=== PATIENT | male | born 1925 | race Caucasian/White ===

== ENCOUNTER 2016-04-12 19:22 | Emergency (ER) | payer MEDICARE, OTHER ==
[~2016-04-12 19:22] MED LIST: CARD120 PO; DIABETA5 PO; METFORMIN PO; PRIN10 PO; ZOCOR40 PO
[2016-04-13 01:07] LABS: BASOPHILS 0.1 %; BASOPHILS ABSOLUTE 0.01 10/3/uL (0.0-0.16); EOSINOPHILS 1.2 %; ER CBC TAT 0 Hrs 20 Mins; HEMATOCRIT 41.8 % (40.0-51.0); HEMOGLOBIN 14.5 g/dL (13.6-17.8); IMMATURE GRANULOCYTES 0.2 %; IMMATURE GRANULOCYTES ABSOLUTE 0.02 10/3/uL (0.0-0.11); MEAN CORPUS HGB CONC 34.7 g/dL (32.0-36.0); MEAN CORPUSCULAR HEMOGLOB 31.1 pg (26.0-34.0); MEAN CORPUSCULAR VOLUME 89.7 fL (80-100); MEAN PLATELET VOLUME 9.7 fL (9.2-13.0); MONOCYTES 7.1 %; MONOCYTES ABSOLUTE 0.57 10/3/uL (0.21-1.20); NEUTROPHILS 65.4 %; NEUTROPHILS ABSOLUTE 5.28 10/3/uL (2.02-8.40); PLATELET COUNT 190 10/3/uL (150-400); RBC DISTRIBUTION WIDTH 12.6 % (12.0-16.0); RED CELL COUNT 4.66 10/6/uL (4.7-6.1); WHITE BLOOD CELLS 8.1 10/3/uL (4.5-10.5)
[2016-04-13 01:08] LABS: MANUAL DIFF NO %
[2016-04-13 01:42] LABS: CALCIUM, SERUM 9.1 MG/DL (8.5-10.4); CHLORIDE, SERUM 104 MMOL/L (96-112); CO2 (CARBON DIOXIDE) 29 MMOL/L (24-34); CREATININE 1.29 MG/DL (0.70-1.30); GFR AFRICAN AMERICAN 57 ML/MIN (>=60); GFR NON AFRICAN AMERICAN 49 ML/MIN (>=60); POTASSIUM, SERUM 4.1 MMOL/L (3.5-5.3); SGOT(AST) 11 U/L (5-40); SGPT(ALT) 21 U/L (5-65); SODIUM, SERUM 141 MMOL/L (135-148); TOTAL BILIRUBIN 0.5 MG/DL (0-1.2)
[2016-04-13 01:42] LABS: ALBUMIN 3.9 G/DL (3.5-5.0); DIRECT BILIRUBIN 0.1 MG/DL (0.0-0.4); INDIRECT BILIRUBIN(NOT ORDER) 0.3 MG/DL (0.1-0.9); TOTAL BILIRUBIN 0.4 MG/DL (0-1.2); TOTAL PROTEIN 7.8 G/DL (6.0-8.5)
[2016-04-13 01:43] LABS: ALKALINE PHOSPHATASE 87 U/L (45-117); BUN (BLOOD UREA NITROGEN) 29 MG/DL (6-23); GLUCOSE, SERUM 315 MG/DL (60-99)
[2016-04-13 01:58] LABS: ASCORBIC ACID (UR NOT ORDER) NEG (NEG); BILIRUBIN, URINE NEGATIVE (NEG); ER URINALYSIS TAT 0 Hrs 00 Mins; KETONE, URINE NEGATIVE (NEG); LEUKOCYTE ESTERASE(NOT OR NEG (NEG); NITRITE (URINE) NEG (NEG); WBC (NOT ORDERED) (RFLEX) < 1 (0-5)
[2016-04-14] MEDS ORDERED: CARD120 PO (11:18)
[2016-04-14] MEDS ORDERED: LANTUS SC (11:18)
[2016-04-14] MEDS ORDERED: ZOCOR40 PO (11:18)
[2016-04-14] MEDS ORDERED: PRIN10 PO (11:18)
[2016-04-14] MEDS ORDERED: DIABETA5 PO (11:18)
[2016-05-17] MEDS ORDERED: LANTUSCART SC (13:41)
[2016-05-17] MEDS ORDERED: ARICEPT5 PO (13:42)
[2016-05-17] MEDS ORDERED: NOVOPEN SC (13:42)
[2016-05-17] MEDS ORDERED: PLAVIX PO (13:43)
[2016-05-17] MEDS ORDERED: LIPITOR80 MG PO (13:43)
[2016-05-17] MEDS ORDERED: ASABAYER PO (13:45)
[2016-05-17] MEDS ORDERED: PROTONIX PO (13:45)
[2016-05-23] MEDS ORDERED: LANTUS SC ×2 (19:52→19:53)
[2016-05-23] MEDS ORDERED: NOVOLOG SC (19:53)
[2016-05-23] MEDS ORDERED: ASA5GR PO (19:54)
[2016-05-23] MEDS ORDERED: CARDCD120 PO (19:54)
[2016-05-23] MEDS ORDERED: PLAVIX PO (19:54)
[2016-05-23] MEDS ORDERED: ARICEPT5 PO (19:54)
[2016-05-23] MEDS ORDERED: DIABETA5 PO (19:54)
[2016-05-23] MEDS ORDERED: PRIN10 PO (19:55)
[2016-05-23] MEDS ORDERED: LIPITOR80 MG PO (19:55)
[2016-05-23] MEDS ORDERED: ADVIL PO (19:56)
[2016-05-23] MEDS ORDERED: MIRALAX POWDER1 PKT PO (19:56)
[2016-05-23] MEDS ORDERED: DESITIN (19:57)
== END 2016-04-13 03:09 | disposition home or self-care (01) ==
LOC: ER 19:22
PROVIDERS: Nurse Practitioner; Nurse Practitioner Acute Care
PROC: 0T9B70Z Drainage of Bladder with Drainage Device, Via Natural or Artificial Opening (ICD-10-PCS; principal; 2016-04-12)
DX: N32.89 Other specified disorders of bladder (principal); R33.9 Retention of urine, unspecified; E11.65 Type 2 diabetes mellitus with hyperglycemia; Z85.46 Personal history of malignant neoplasm of prostate; Z79.899 Other long term (current) drug therapy
CPT/HCPCS: 74176; 80053; 80076; 81001; 82962; 83690; 85025; 99285

== ENCOUNTER 2016-04-14 11:17 | Inpatient (IN) | payer MEDICARE, OTHER ==
--- NOTE | ~2016-04-14 | HP ---
History And Physical [address] [address] NAME: DYAN TORRES : [birth year] STATUS : ADM IN [facility]#: [id number] AGE: 89 ADM/REG DATE : 04/14/16 MR#: [id number] REPORT SERV DATE: 04/14/16 DICTATED BY: KRYSTAL HERNANDEZ DATE: 04/14/16 REPORT STATUS : Draft TRANSCRIBED BY: ESTELLE DATE: 04/14/16 DATE OF ADMISSION: 04/14/2016 TIME: 1243 hours. Seen in ER room 21. HISTORY OF PRESENT ILLNESS: The patient is an 89-year-old white male, who this morning was found down at home about an hour after his overnight helper left. He was found by his daughter, found to be on the floor, right-sided weakness, dysarthria, and altered mental status. He was taken to the ER and evaluated by CT scan, which did not show an acute issue. He was given tPA for stroke, and had marked improvement. According to the patient's family, he has had no prior history of strokes, no prior history of significant cardiac disease. Has had history of hypertension and also has a past medical history of diabetes. He also had prostate cancer treated with radiation seed therapy. ALLERGIES: NO KNOWN ALLERGIES. HOME MEDICATIONS: Include Cardizem 120 mg p.o. daily, DiaBeta 5 mg p.o. twice a day, Lantus 15 units subcu twice a day, lisinopril 10 mg p.o. daily, and simvastatin 40 mg p.o. daily. REVIEW OF SYSTEMS: GI: Negative. : As noted. Also, a recent note, bladder tumor, diagnosed two nights ago. Has a Hawthorne in place. PHYSICAL EXAMINATION: VITAL SIGNS: Showed a blood pressure of 130/92, pulse of 90 and regular, temperature 98.3. Saturation 97%. GENERAL: The patient is an elderly appearing male, slightly tanned. HEENT: Head is normocephalic. Sclerae and conjunctivae are clear. Extraocular movements appear to be intact. Visual chaney grossly intact. NECK: Supple. Good upstroke. No bruits. Oropharynx has some bleeding around the gumline. CHEST: Clear to auscultation and percussion. No wheezing or rhonchi. CARDIAC: S1 and S2. No murmurs or gallops. ABDOMEN: Scaphoid, nontender. No masses or organomegaly. EXTREMITIES: No clubbing, cyanosis, or edema. Pulses palpable. NEUROLOGIC: Moves all extremities. Seems to be equal in strength currently. This is after tPA. Cranial nerves 2 through 12 appear to be intact. Deep tendon reflexes appear to be within normal limits. LABORATORY DATA: Shows the following; sodium 141, potassium 3.8, chloride 104, CO2 is 31, BUN 25, creatinine 1.14, glucose 190, calcium 9.0, total protein 7.4, albumin 3.5, total bilirubin 0.9. Alkaline phosphatase 87, ALT 20, AST 12, troponin 0.02. CBC shows an H and H of 14.0 and 39.5, white count 52778, platelet count 167,000. PTT 24.3, INR 1.2. Brain stroke protocol was done, which showed marked cerebral atrophy with severe periventricular History And Physical [address] [address] NAME: DYAN TORRES : [birth year] STATUS : ADM IN [facility]#: [id number] AGE: 89 ADM/REG DATE : 04/14/16 MR#: [id number] REPORT SERV DATE: 04/14/16 DICTATED BY: KRYSTAL HERNANDEZ DATE: 04/14/16 REPORT STATUS : Draft TRANSCRIBED BY: ESTELLE DATE: 04/14/16 leukoencephalopathy and evidence of prior infarctions. CTA of neck and brain showed fairly normal carotid vessels calcified, but patent carotid siphons. No intracranial thrombus identified. Chest x-ray, chronic interstitial fibrosis. No lung masses or lung infiltrates. EKG shows sinus rhythm, first degree AV block, left bundle-branch block. Abnormal ECG. IMPRESSION: 1. Recent cerebrovascular accident, now responding to tPA. 2. History of hypertension. 3. History of diabetes mellitus, insulin dependent. 4. What appears to be mild interstitial lung disease. 5. Bladder mass seen recently. PLAN: We will follow his neurologic status and we will get Dr. Carrasco to see the patient regarding his bladder tumor. On his x-ray, it looks like he has had several rib fractures. RP/MODL Krystal Hernandez M.D. / [id number] CC: Kendell Blanco
--- NOTE | ~2016-04-14 | EEG ---
Electroencephalogram [facility] [address] [place]. [address] NAME: DYAN TORRES : [birth year] STATUS : ADM IN PAT#: [id number] AGE: 89 ADM/REG DATE : 04/14/16 MR#: [id number] REPORT SERV DATE: 04/17/16 DICTATED BY: DATE: REPORT STATUS : Draft TRANSCRIBED BY: MODL DATE: 04/17/16 NEUROLOGY EEG REPORT CLINICAL INDICATION: Possible seizure. DISCUSSION: This EEG was performed using 10/20 electrode placement system. During the EEG study, symmetric background activity was noted with predominant occipital rhythm of roughly 8 Hz. Photic stimulation was performed with photic driving response more prominently seen at the lower frequency. Hyperventilation was not performed secondary to patient's the age as well as concurrent medical conditions. The patient achieved drowsy state during the EEG study. No focal abnormalities, seizure activity, or seizure discharge was otherwise noted. INTERPRETATION: This EEG study obtained during awake and drowsy state may be considered within normal limits. No focal abnormalities, seizure activity, or seizure discharge was noted. Normal EEG does not preclude diagnosis of seizure. Clinical correlation is otherwise recommended. [facility]/MODL Paulie Haider MD / [id number] CC: Pablo Hernandez M.D.
--- NOTE | ~2016-04-14 | CN ---
Consultation Report [facility] [address] [place]. [address] NAME: DYAN TORRES : [birth year] STATUS : ADM IN PAT#: [id number] AGE: 89 ADM/REG DATE : 04/14/16 MR#: [id number] REPORT SERV DATE: 04/17/16 DICTATED BY: RENEE ZULETA DATE: 04/14/16 REPORT STATUS : Draft TRANSCRIBED BY: MODL DATE: 04/14/16 UROLOGY CONSULT DATE OF CONSULTATION: I am seeing this patient for Dr. Carrasco in his absence. CHIEF COMPLAINT: Unable to obtain due to the patient is asleep. HISTORY: This is an 89-year-old gentleman, known to Dr. Carrasco for history of prostate cancer, treated with radioactive seed implants over 13 years ago. He has a solitary right kidney. He was recently seen in the office in February. He did have a cytology sent at that time for microscopic hematuria. This returned as normal. He had a complete workup for microscopic hematuria in 2010. This included a cystoscopy and a right retrograde pyelogram in the operating room. It also included bladder biopsies. All of this was negative for cancer or stones. Dr. Carrasco was in the process of scheduling an office cystoscopy since it had been greater than 5 years since his last microscopic hematuria workup. Unfortunately, the patient was admitted for a stroke. He has responded well to tPA given at noon today. His only remaining sequelae is a slightly decreased right promotions specialist strength. He presented to the emergency room on the complaining of abdominal pain. He underwent a CT scan stone protocol, which showed greatly distended bladder and had a Hawthorne catheter placed. However, it also showed right hydroureteronephrosis which was very significant with a tortuous ureter and a severely distended right renal pelvis. This torturous ureter was down to the distal ureter where he has a mass extrinsically compressing the ureter. On series 5, image 32, you can see the mass cupping the distal ureter. This is where you can see that it is extrinsic in origin. The patient was sent home and told to follow up with Dr. Carrasco. In regard to his prostate cancer, Dr. Carrasco and Mr. Torres had agreed several years ago to forego any further PSAs due to his age, but a PSA was checked in 2014 that was elevated compared to previous, but it was less than 4. At this point, he has some clear yellow urine in his catheter bag. His creatinine is 1.14 which is his baseline compared to September of 2015. He does not appear to be in any pain. PAST MEDICAL HISTORY: Prostate cancer, recent stroke, elevated cholesterol, hypertension, and diabetes. PAST SURGICAL HISTORY: Placement of radioactive seeds. ALLERGIES: NO KNOWN DRUG ALLERGIES. MEDICATIONS: On admission; Cardizem, DiaBeta, Lantus Insulin, Prinivil, and Zocor. SOCIAL HISTORY: He is single, lives with his family and retired. Denies any current alcohol or tobacco use. REVIEW OF SYSTEMS: Consultation Report [address] [place]. [address] NAME: DYAN TORRES : [birth year] STATUS : ADM IN [facility]#: [id number] AGE: 89 ADM/REG DATE : 04/14/16 MR#: [id number] REPORT SERV DATE: 04/17/16 DICTATED BY: RENEE ZULETA DATE: 04/14/16 REPORT STATUS : Draft TRANSCRIBED BY: ESTELLE DATE: 04/14/16 He had right-sided weakness upon presentation, also with dysarthria and speech difficulties upon presentation. PHYSICAL EXAMINATION: VITAL SIGNS: He is afebrile. His vital signs are pulse of 74. He has a normal blood pressure. In's and out's are not yet recorded as he just made it to the unit. GENERAL: He is in no acute distress. NEUROLOGIC: He is drowsy. HEENT: Eyes: His sclerae are anicteric. Face is bruised. EXTREMITIES: Show no edema. : Exam shows Hawthorne catheter in place, draining clear, yellow urine. LABORATORY STUDIES: White count of 12.1, hemoglobin 14, hematocrit 39.5, platelets 167. Sodium 141, potassium 3.8, chloride 104, CO2 of 31, BUN of 25, creatinine 1.14, glucose of 190. PT of 15.4, INR of 1.2, and PTT of 24.3. LFTs are within normal limits. CT scan as stated above. IMPRESSION: 1. 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 2. Urinary retention. Hawthorne catheter in place, draining well. 3. Status post cerebrovascular accident; tPA given at noon on 04/14/2016. Plavix is not yet given. PLAN: 1. I spoke with both Dr. Hernandez and Dr. Whittaker of Interventional Radiology. Stents do not reliably drain through extrinsic compression of the ureter. He has a solitary kidney. He needs a percutaneous nephrostomy tube. We had a very small window with which to work due to his tPA and his need for Plavix. Dr. Whittaker is willing to place a percutaneous nephrostomy tube tomorrow afternoon, [address] Hernandez believes it will be safe to hold off on the Plavix until Sunday morning. I have explained all of this to the family and discussed with them. They are in agreement with this plan. 2. I have ordered a PSA to be drawn with his a.m. laboratory studies. 3. If the PSA is further elevated from previous then, we will start hormonal therapy with leuprolide shot. Perhaps, this will help decrease the mass size enough to allow renal drainage. The other option is that it may decrease the mass size enough to allow potential drainage through a stent. This has all been explained in detail to the family, and they are willing to proceed with this plan. ENRICO/ESTELLE Renee Consultation Report [address] [place]. [address] NAME: DYAN TORRES CIARAN : [birth year] STATUS : ADM IN PAT#: [id number] AGE: 89 ADM/REG DATE : 04/14/16 MR#: [id number] REPORT SERV DATE: 04/17/16 DICTATED BY: RENEE ZULETA DATE: 04/14/16 REPORT STATUS : Draft TRANSCRIBED BY: ESTELLE DATE: 04/14/16 Kendell Zuleta / [id number] CC: Kendell Blanco
--- NOTE | ~2016-04-14 | CN ---
Consultation Report [facility] [address] [place]. [address] NAME: DYAN TORRES : [birth year] STATUS : ADM IN PAT#: [id number] AGE: 89 ADM/REG DATE : 04/14/16 MR#: [id number] REPORT SERV DATE: 04/14/16 DICTATED BY: DATE: REPORT STATUS : Draft TRANSCRIBED BY: MODL DATE: 04/14/16 NEUROLOGY CONSULTATION DATE OF CONSULTATION: 04/14/2016 REASON FOR CONSULT: Acute change in mental status, possible stroke. HISTORY OF PRESENT ILLNESS: This is an 89-year-old male, presented to [facility] on 04/14/2016 via EMS as the patient was found by family members to be unconscious on the side. The patient, upon EMS arrival, was awake, but disoriented, and was noted to have significant right-sided weakness. The patient's language has significantly improved after EMS and hospital arrival. Also, the patient was still noted to have significant right-sided weakness and significant dysarthria and disorientation. The patient's family denies similar events in the past. The patient does have urinary retention and was diagnosed with bladder mass in the emergency department roughly two days ago, with the patient being having Hawthorne catheterization until the patient can be evaluated by a urologist. Otherwise, the family denies any other recent illness, fever, chills, nausea, vomiting, chest pain, or shortness of breath. The patient does not have any previous history of seizure. The patient's family does report the patient has some cognitive difficulties, especially with the recent memories as well as day-to-day activities, although the patient does not appear to have difficulties with the long-term memory. This has been ongoing for the past several months and progressively worse. The patient at baseline does not take any blood thinner. The patient was supposed to be taking baby aspirin, but the patient ran out of medication and has not been getting new bottle. As a result, the patient currently is not on any aspirin therapy. Family members does reports a previous history of stroke, although the patient does not appear to be symptomatic. No other changes in medication were otherwise reported by family members. MEDICATIONS: At time of evaluation, the patient's home medications consists of glyburide as well as lisinopril with the patient also on simvastatin. ALLERGIES: THE PATIENT WAS NOTED TO HAVE NO KNOWN DRUG ALLERGIES. PAST MEDICAL HISTORY: Significant for hypertension, diabetes, previous history of stroke without residual deficits. The patient was asymptomatic. The patient was also noted to have progressive memory difficulties over the past several months and recent diagnosis of bladder cancer. The patient has not had a chance to be evaluated by Urology at this time. No previous history of seizure disorder was noted. FAMILY HISTORY: Significant for stroke, hypertension, lung cancer, as well as diabetes. SOCIAL HISTORY: No tobacco, alcohol, or recreational drug usage. REVIEW OF SYSTEMS: Consultation Report [place] [id number] [facility] [place]. [address] NAME: DYAN TORRES : [birth year] STATUS : ADM IN PAT#: [id number] AGE: 89 ADM/REG DATE : 04/14/16 MR#: [id number] REPORT SERV DATE: 04/14/16 DICTATED BY: DATE: REPORT STATUS : Draft TRANSCRIBED BY: MODL DATE: 04/14/16 Otherwise negative except for those mentioned in the HPI, per family members. Also, the patient was unable to provide detailed review of systems secondary to mental status. PHYSICAL EXAMINATION: VITAL SIGNS: At the time of the ER evaluation, the patient was noted to have T-max of 98.3, heart rate of 64 to 90, and respirations of 16. The patient was noted to have blood pressure of 130/92. GENERAL: The patient is well developed, well nourished, in no acute distress. CARDIOVASCULAR: Regular rate and rhythm. No carotid bruits were otherwise auscultated. PULMONARY: Clear to auscultation bilaterally. NEUROLOGICAL EXAMINATION: Generally, the patient is alert and disoriented regarding place, year, or month. The patient follows sporadic commands at the time of evaluation. Dysarthria was appreciated at the time of evaluation. Cranial nerves II through XII, pupils equal, round, and reactive to light. Extraocular eye movement was noted to be intact with intact blink to threat bilaterally. The patient was noted to have right facial droop. Midline tongue. Normal palatal movement. Decreased hearing with the patient noted to have an apparent intact sensation. The patient does demonstrate symmetrical strength in bilateral upper extremity, but weakness in the right lower extremity with the drift as well as intact strength in the left lower extremity. Deep tendon reflex was 2+ throughout. Upgoing toe on bilateral plantar reflexes. No clear ataxia was noted. Gait was not evaluated secondary to the patient's weakness and mental status. LABORATORY STUDIES: Demonstrates sodium 141, potassium is 3.8, chloride 104 bicarb of 31, BUN of 25, creatinine 1.14, glucose was 90, calcium of 9.0. White blood cell count of 12.1, hemoglobin of 14.0, hematocrit of 39.5, and platelet count of 167. CT scan of the brain demonstrated multiple previous CVAs and subcortical white matter diseases, but no acute process was seen. Generalized atrophy was also noted. IMPRESSION: 1. Altered mental status. 2. Dysarthria. 3. Right hemiparesis. The patient was last noted to be normal at 0830 hours with the patient on evaluation noted to have NIH Stroke Scale of 8. The tPA was given at 1130 hours. Concerned for possible stroke versus seizure, we will get MRI of the brain, stroke workup, as well as EEG evaluation. RECOMMENDATION: 1. ICU admission. 2. MRI of the brain without contrast. 3. Echocardiogram. 4. Fasting lipid panel and hemoglobin A1c. 5. EEG. 6. Aspirin and Plavix 24 hours after tPA. Consultation Report [address] [address] NAME: DYAN TORRES : [birth year] STATUS : ADM IN [facility]#: [id number] AGE: 89 ADM/REG DATE : 04/14/16 MR#: [id number] REPORT SERV DATE: 04/14/16 DICTATED BY: DATE: REPORT STATUS : Draft TRANSCRIBED BY: MODL DATE: 04/14/16 7. We will start the patient on atorvastatin 80 mg p.o. at bedtime. 8. We will discontinue the patient's home simvastatin. 9. PT/OT, Speech Therapy, consulting physician. [facility]/MODL Paulie Haider MD / [id number] CC: Kendell Blanco TERESA J
--- NOTE | ~2016-04-14 | IDS ---
Interim Discharge Summary [facility] [address] [place]. [address] NAME: DYAN TORRES : [birth year] STATUS : ADM IN [facility]#: [id number] AGE: 89 ADM/REG DATE : 04/14/16 MR#: [id number] REPORT SERV DATE: 04/17/16 DICTATED BY: VIDAL LIU DATE: 04/17/16 REPORT STATUS : Draft TRANSCRIBED BY: ESTELLE DATE: 04/17/16 ADMISSION DATE: 04/14/2016 DISCHARGE DATE: DIAGNOSES: 1. Acute right hemispheric cerebrovascular accident status post tPA. 2. Dysphagia. 3. Urinary tract infection associated with hydronephrosis, requiring placement right nephrostomy tube. 4. 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 5. Type 2 diabetes mellitus. 6. Hypertension. 7. Possible dementia. HOSPITAL COURSE: This is an 89-year-old patient, who was admitted to the Intensive Care Service on 04/14/2016 after he was found down at home with right-sided weakness, dysarthria, and altered mental status. The patient was taken to the ER. CT scan of the head was done that was negative. The patient was then considered a candidate for tPA for stroke, this was done and Neurology service was following the patient as well. The patient was then subsequently admitted and during his workup here, he had a CT scan of the abdomen and pelvis that showed that the patient had a prior left nephrectomy, marked hydronephrotic changes on the right secondary to tumor infiltration and/or obstruction of the distal right ureter. Dr. Zuleta of Urology Service was consulted and scheduled the patient for placement of right nephrostomy tube, which was done on Sunday since the patient had just received tPA and had to wait at least over 24 hours to have this placed. Urology continues to follow the patient. The patient did exhibit some dysphagia afterwards and was n.p.o. for at least a day or so but that seems to have been improved and the patient is not able to take p.o. he ill requires OT and PT. He also has a urinary tract infection and has 100,000 colonies of Citrobacter freundii, and has been started on cefepime today. With regard to his diabetes mellitus. He at first was just on a sliding insulin scale. When his diet progressed, he was started on DiaBeta and Levemir. Hypertension requires lisinopril. Possible interstitial lung disease was mentioned in the notes; however, there is no documented history of that and the patient sat is 97% on minimal O2. Neurology has been following the patient and thus far his EEG is to be done today on 04/17/2016. Echo was done and is pending. He also was thought to have some dementia and was started on Aricept by Neurology. He also was continued on Lipitor in the setting of stroke as well as aspirin and Plavix. MRI of the brain is negative. EEG is being done because there was a question of seizure when he first was admitted, however, no seizure activity has been witnessed and the patient is not on any medication for this. Going back to the patient's urology issues, the patient has a history of prostate cancer, Interim Discharge Summary [address] [address] NAME: DYAN TORRES : [birth year] STATUS : ADM IN [facility]#: [id number] AGE: 89 ADM/REG DATE : 04/14/16 MR#: [id number] REPORT SERV DATE: 04/17/16 DICTATED BY: VIDAL LIU DATE: 04/17/16 REPORT STATUS : Draft TRANSCRIBED BY: ESTELLE DATE: 04/17/16 treated with radioactive seed implants over 13 years ago. The patient had a complete workup for microscopic hematuria in 2010. For further details of Urology opinion, please see the detailed consult that was dictated by Dr. Zuleta. The patient also has a history of hypercholesterolemia and is continued on Lipitor. He will need OT/PT and speech therapy. Aspiration precautions should be followed. The patient is currently on a diabetic diet. He is in stable condition to be transferred to the floor and to be followed by the hospitalist service once the transfer occurs. /MODL Vidal Liu M.D. / [id number] CC: Kendell Blanco TERESA J.
--- NOTE | ~2016-04-14 | DS ---
Discharge Summary [address] [place]. [address] NAME: DYAN TORRES : [birth year] STATUS : DIS IN PAT#: [id number] AGE: 89 ADM/REG DATE : 04/14/16 MR#: [id number] REPORT SERV DATE: 04/22/16 DICTATED BY: YING NARVAEZ DATE: 04/21/16 REPORT STATUS : Draft TRANSCRIBED BY: ESTELLE DATE: 04/21/16 ADMISSION DATE: 04/14/2016 DISCHARGE DATE: 04/20/2016 Date of transfer from MICU to a regular floor is 04/17/2016. CONDITION ON DISCHARGE: Stable. DISPOSITION: Discharged to inpatient rehab facility. DIAGNOSES ON DISCHARGE: Includes: 1. Acute right hemispheric cerebrovascular accident with minimal residual weakness on the left side as the patient received tPA. 2. Dysphagia, which is very minimal and the patient is able to eat a soft mechanical diet with aspiration precautions pretty well. 3. Urinary tract infection associated with hydronephrosis requiring placement of a right nephrostomy tube. 4. 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 5. Type 2 diabetes mellitus, which is not controlled as an A1c is 9.8. 6. Hypertension, fairly well controlled. 7. Moderate dementia. BRIEF HOSPITAL COURSE: Mr. Torres is an 89-year-old white male patient, who was initially admitted to the MICU after he was given tPA for an acute right hemispheric cerebrovascular accident. For details, please see H and P dictated by Dr. Hernandez on 04/14/2016. The patient was stabilized after tPA and was transferred to the floor subsequently after 24-48 hours when he remained stable. The patient ended up with very minimal left-sided weakness or deficit luckily because of the tPA. He also had mild dysphagia but was able to tolerate soft mechanical diet without significant aspiration pretty well. His other main problem was right-sided hydronephrosis for which he needed a right nephrostomy tube placed. Urology was consulted and I do have Dr. Renee Zuleta's dictation note as on 04/14/2016 that essentially describes right sided hydronephrosis from locally advancing cancer of the prostate requiring right nephrostomy. Urinary retention, for which, the patient will require Hawthorne catheter in place indefinitely. Later on, Urology may try to put in a suprapubic cystostomy in this gentleman. Anyhow, the patient did well after he was transferred from the ICU to the floor and even though he was mildly confused, which according to family is his baseline status from the dementia, he did well with therapy and also did well with eating soft mechanical diet. His right-sided nephrostomy tube is in place and urine is slightly dark, but there is no hematuria. The patient also has a Hawthorne catheter in place that is essentially showing clear urine in the bag. At this time, I attempted several times to discuss code status of this patient with family, but they are not willing to bring this up right now. In fact, they are telling me that the patient is not even aware of how seriously advanced his prostate cancer Discharge Summary [address] [place]. [address] NAME: DYAN TORRES : [birth year] STATUS : DIS IN PAT#: [id number] AGE: 89 ADM/REG DATE : 04/14/16 MR#: [id number] REPORT SERV DATE: 04/22/16 DICTATED BY: YING NARVAEZ DATE: 04/21/16 REPORT STATUS : Draft TRANSCRIBED BY: ESTELLE DATE: 04/21/16 is and they do not wish to discuss it with him at this time. I urged the family to discuss this with him soon and prepare an advanced directive in place. In the meantime, the patient has been stabilized and being discharged to rehab in stable condition and with followup with Urology as an outpatient. He will be going home on the following medications: Aricept 5 mg p.o. at bedtime, aspirin 325 mg p.o. daily, Cardizem CD 120 mg p.o. daily, DiaBeta 5 mg p.o. b.i.d., folic acid 1 mg p.o. daily, Levemir 15 units subcutaneously twice a day, and Lipitor 40 mg p.o. at bedtime. The patient has already finished his Maxipime course, which he took for his urinary tract infection. His urine culture was positive for Citrobacter. All his labs will be dictated in the following paragraphs. Anyhow, he completed his treatment with Maxipime. Plavix 75 mg once a day, Prinivil 10 mg once a day, and Protonix 40 mg once a day. I have the following most recent labs on this patient. CBC on 04/18/2016 shows a WBC count of 7.5, hemoglobin 12.6, hematocrit of 36.3, and platelet count of 276. Electrolyte profile on 04/18/2016 shows sodium 141, potassium 3.8, BUN 14, and creatinine 0.8. His phosphorus, which was low at 1.6 has been corrected per electrolyte protocol. Other tests that he had during hospitalization include an A1c that came back high at 9.8 reflecting uncontrolled diabetes mellitus. Urine culture that came back positive for Citrobacter, which is why he had to be treated with IV cefepime. Imaging studies that were done include a CT scan of the brain, CTA, MRI of the brain that showed an old 7 mm left basal ganglia lacunar infarct and an old right frontal lobe lacunar infarct but no other findings. The patient also has dementia. The patient also had an EEG per Neurology recommendations and the EEG was normal without any seizure activity. Hence, the patient is being sent to rehab in stable condition and I have spent about 40-45 minutes in coordinating discharge care of this patient including face-to- face encounter and summarizing this discharge. RRA/MODL Ying Narvaez M.D. / [id number] CC: Hannah Novak
[2016-04-14 11:08] LABS: BASOPHILS 0.2 %; BASOPHILS ABSOLUTE 0.02 10/3/uL (0.0-0.16); EOSINOPHILS 1.2 %; EOSINOPHILS ABSOLUTE 0.14 10/3/uL (0.0-0.53); ER CBC TAT 0 Hrs 02 Mins; HEMATOCRIT 39.5 % (40.0-51.0); IMMATURE GRANULOCYTES 0.2 %; IMMATURE GRANULOCYTES ABSOLUTE 0.03 10/3/uL (0.0-0.11); LYMPHOCYTES 12.3 %; LYMPHOCYTES ABSOLUTE 1.48 10/3/uL (0.67-4.30); MANUAL DIFF NO %; MEAN CORPUS HGB CONC 35.4 g/dL (32.0-36.0); MEAN CORPUSCULAR HEMOGLOB 30.5 pg (26.0-34.0); MEAN CORPUSCULAR VOLUME 86.1 fL (80-100); MEAN PLATELET VOLUME 9.5 fL (9.2-13.0); MONOCYTES 6.4 %; MONOCYTES ABSOLUTE 0.77 10/3/uL (0.21-1.20); NEUTROPHILS 79.7 %; NEUTROPHILS ABSOLUTE 9.61 10/3/uL (2.02-8.40); PLATELET COUNT 167 10/3/uL (150-400); RBC DISTRIBUTION WIDTH 12.7 % (12.0-16.0); RED CELL COUNT 4.59 10/6/uL (4.7-6.1); WHITE BLOOD CELLS 12.1 10/3/uL (4.5-10.5)
[2016-04-14] MEDS ORDERED: DIABETA5 PO (11:18)
[2016-04-14] MEDS ORDERED: LANTUS SC (11:18)
[2016-04-14] MEDS ORDERED: CARD120 PO (11:18)
[2016-04-14] MEDS ORDERED: ZOCOR40 PO (11:18)
[2016-04-14] MEDS ORDERED: PRIN10 PO (11:18)
[2016-04-14 11:19] LABS: INTERNATIONAL NORMAL RATI 1.2 UNITS (-); PARTIAL THROMBO TIME 24.3 SEC (22.5-37.2); PROTIME (NOT ORD) 15.4 SEC (12.0-14.5)
[2016-04-14 11:29] LABS: A/G RATIO 0.9 (0.7-1.9); ALBUMIN 3.5 G/DL (3.5-5.0); ALKALINE PHOSPHATASE 87 U/L (45-117); CHLORIDE, SERUM 104 MMOL/L (96-112); CO2 (CARBON DIOXIDE) 31 MMOL/L (24-34); CREATININE 1.14 MG/DL (0.70-1.30); GFR AFRICAN AMERICAN 66 ML/MIN (>=60); GFR NON AFRICAN AMERICAN 57 ML/MIN (>=60); GLOBULIN 3.9 G/DL (2.5-4.1); POTASSIUM, SERUM 3.8 MMOL/L (3.5-5.3); SGOT(AST) 12 U/L (5-40); SGPT(ALT) 20 U/L (5-65); SODIUM, SERUM 141 MMOL/L (135-148); TOTAL PROTEIN 7.4 G/DL (6.0-8.5); TROPONIN I <0.02 NG/ML (<0.05)
[2016-04-14 11:31] LABS: BUN (BLOOD UREA NITROGEN) 25 MG/DL (6-23); GLUCOSE, SERUM 190 MG/DL (60-99); TOTAL BILIRUBIN 0.9 MG/DL (0-1.2)
[2016-04-14 13:26] LABS: CPK (IF ELEVATED MB BANDS) 74 U/L (0-200)
[2016-04-14 19:33] LABS: CHOL/HDL RATIO(NOT ORDER) 3.1 (0-5); CHOLESTEROL 156 MG/DL (< 200); FREE T4 0.97 NG/DL (0.76-1.46); HDL CHOLESTEROL 51 MG/DL (> 39); LDL CHOLESTEROL 87 MG/DL (< 130); NON-HDL CHOLESTEROL 105 MG/DL (< 160); TRIGLYCERIDE 92 MG/DL (< 150)
[2016-04-14 19:33] LABS: CPK 110 U/L (0-200); TROPONIN I <0.02 NG/ML (<0.05)
[2016-04-14 19:35] LABS: CK-MB 1.3 NG/ML
[2016-04-15 04:14] LABS: INTERNATIONAL NORMAL RATI 1.2 UNITS (-); PARTIAL THROMBO TIME 27.5 SEC (22.5-37.2); PROTIME (NOT ORD) 15.3 SEC (12.0-14.5)
[2016-04-15 04:16] LABS: BASOPHILS 0.2 %; BASOPHILS ABSOLUTE 0.02 10/3/uL (0.0-0.16); EOSINOPHILS 1.5 %; EOSINOPHILS ABSOLUTE 0.18 10/3/uL (0.0-0.53); HEMATOCRIT 37.7 % (40.0-51.0); IMMATURE GRANULOCYTES 0.2 %; IMMATURE GRANULOCYTES ABSOLUTE 0.02 10/3/uL (0.0-0.11); LYMPHOCYTES 15.1 %; LYMPHOCYTES ABSOLUTE 1.79 10/3/uL (0.67-4.30); MANUAL DIFF NO %; MEAN CORPUS HGB CONC 34.5 g/dL (32.0-36.0); MEAN CORPUSCULAR HEMOGLOB 30.5 pg (26.0-34.0); MEAN CORPUSCULAR VOLUME 88.5 fL (80-100); MEAN PLATELET VOLUME 9.7 fL (9.2-13.0); MONOCYTES 6.7 %; NEUTROPHILS 76.3 %; NEUTROPHILS ABSOLUTE 9.07 10/3/uL (2.02-8.40); PLATELET COUNT 188 10/3/uL (150-400); RED CELL COUNT 4.26 10/6/uL (4.7-6.1); WHITE BLOOD CELLS 11.9 10/3/uL (4.5-10.5)
[2016-04-15 04:35] LABS: A/G RATIO 0.8 (0.7-1.9); ALBUMIN 3.1 G/DL (3.5-5.0); BUN (BLOOD UREA NITROGEN) 23 MG/DL (6-23); CHLORIDE, SERUM 107 MMOL/L (96-112); CREATININE 0.92 MG/DL (0.70-1.30); GFR AFRICAN AMERICAN 85 ML/MIN (>=60); GFR NON AFRICAN AMERICAN 73 ML/MIN (>=60); GLOBULIN 3.8 G/DL (2.5-4.1); PROSTATIC SPECIFIC AG 2.44 NG/ML (0.0-6.5); SGPT(ALT) 17 U/L (5-65); SODIUM, SERUM 142 MMOL/L (135-148); TOTAL BILIRUBIN 0.9 MG/DL (0-1.2); TOTAL PROTEIN 6.9 G/DL (6.0-8.5); TROPONIN I <0.02 NG/ML (<0.05)
[2016-04-15 04:38] LABS: ALKALINE PHOSPHATASE 74 U/L (45-117); CK-MB 1.4 NG/ML; CO2 (CARBON DIOXIDE) 26 MMOL/L (24-34); GLUCOSE, SERUM 108 MG/DL (60-99)
[2016-04-15 04:39] LABS: CPK 145 U/L (0-200); POTASSIUM, SERUM 4.1 MMOL/L (3.5-5.3); SGOT(AST) 22 U/L (5-40)
[2016-04-15 06:27] LABS: ASCORBIC ACID (UR NOT ORDER) NEG (NEG); BILIRUBIN, URINE NEGATIVE (NEG); KETONE, URINE NEGATIVE (NEG); LEUKOCYTE ESTERASE(NOT OR SMALL (NEG); WBC (NOT ORDERED) (RFLEX) 14 (0-5)
[2016-04-16 05:41] LABS: BASOPHILS 0.1 %; BASOPHILS ABSOLUTE 0.01 10/3/uL (0.0-0.16); EOSINOPHILS 0.8 %; EOSINOPHILS ABSOLUTE 0.07 10/3/uL (0.0-0.53); HEMATOCRIT 34.6 % (40.0-51.0); HEMOGLOBIN 11.9 g/dL (13.6-17.8); IMMATURE GRANULOCYTES 0.2 %; IMMATURE GRANULOCYTES ABSOLUTE 0.02 10/3/uL (0.0-0.11); LYMPHOCYTES 12.4 %; LYMPHOCYTES ABSOLUTE 1.06 10/3/uL (0.67-4.30); MEAN CORPUS HGB CONC 34.4 g/dL (32.0-36.0); MEAN CORPUSCULAR HEMOGLOB 31.2 pg (26.0-34.0); MEAN CORPUSCULAR VOLUME 90.6 fL (80-100); MEAN PLATELET VOLUME 9.8 fL (9.2-13.0); MONOCYTES 6.8 %; MONOCYTES ABSOLUTE 0.58 10/3/uL (0.21-1.20); NEUTROPHILS 79.7 %; NEUTROPHILS ABSOLUTE 6.82 10/3/uL (2.02-8.40); PLATELET COUNT 168 10/3/uL (150-400); RBC DISTRIBUTION WIDTH 12.8 % (12.0-16.0); RED CELL COUNT 3.82 10/6/uL (4.7-6.1); WHITE BLOOD CELLS 8.6 10/3/uL (4.5-10.5)
[2016-04-16 05:47] LABS: MANUAL DIFF NO %
[2016-04-16 05:48] LABS: BUN (BLOOD UREA NITROGEN) 23 MG/DL (6-23); CALCIUM, SERUM 8.3 MG/DL (8.5-10.4); CHLORIDE, SERUM 109 MMOL/L (96-112); CO2 (CARBON DIOXIDE) 25 MMOL/L (24-34); CREATININE 0.92 MG/DL (0.70-1.30); GFR AFRICAN AMERICAN 85 ML/MIN (>=60); GFR NON AFRICAN AMERICAN 73 ML/MIN (>=60); GLUCOSE, SERUM 129 MG/DL (60-99); PHOSPHORUS, SERUM 2.6 MG/DL (2.5-4.5); SODIUM, SERUM 145 MMOL/L (135-148)
[2016-04-17 04:56] LABS: BASOPHILS 0.3 %; BASOPHILS ABSOLUTE 0.02 10/3/uL (0.0-0.16); EOSINOPHILS 2.7 %; EOSINOPHILS ABSOLUTE 0.21 10/3/uL (0.0-0.53); HEMATOCRIT 34.7 % (40.0-51.0); HEMOGLOBIN 12.1 g/dL (13.6-17.8); IMMATURE GRANULOCYTES 0.3 %; IMMATURE GRANULOCYTES ABSOLUTE 0.02 10/3/uL (0.0-0.11); LYMPHOCYTES 15.5 %; LYMPHOCYTES ABSOLUTE 1.23 10/3/uL (0.67-4.30); MEAN CORPUS HGB CONC 34.9 g/dL (32.0-36.0); MEAN CORPUSCULAR HEMOGLOB 31.2 pg (26.0-34.0); MEAN CORPUSCULAR VOLUME 89.4 fL (80-100); MEAN PLATELET VOLUME 9.6 fL (9.2-13.0); MONOCYTES 7.5 %; MONOCYTES ABSOLUTE 0.59 10/3/uL (0.21-1.20); NEUTROPHILS 73.7 %; NEUTROPHILS ABSOLUTE 5.84 10/3/uL (2.02-8.40); PLATELET COUNT 180 10/3/uL (150-400); RBC DISTRIBUTION WIDTH 12.5 % (12.0-16.0); RED CELL COUNT 3.88 10/6/uL (4.7-6.1); WHITE BLOOD CELLS 7.9 10/3/uL (4.5-10.5)
[2016-04-17 05:05] LABS: BUN (BLOOD UREA NITROGEN) 22 MG/DL (6-23); CALCIUM, SERUM 8.5 MG/DL (8.5-10.4); CHLORIDE, SERUM 108 MMOL/L (96-112); CO2 (CARBON DIOXIDE) 25 MMOL/L (24-34); CREATININE 0.87 MG/DL (0.70-1.30); GFR AFRICAN AMERICAN 89 ML/MIN (>=60); GFR NON AFRICAN AMERICAN 77 ML/MIN (>=60); MANUAL DIFF NO %; POTASSIUM, SERUM 3.7 MMOL/L (3.5-5.3); SODIUM, SERUM 141 MMOL/L (135-148)
[2016-04-17 05:10] LABS: GLUCOSE, SERUM 181 MG/DL (60-99)
[2016-04-18 09:35] LABS: HEMATOCRIT 36.3 % (40.0-51.0); HEMOGLOBIN 12.6 g/dL (13.6-17.8); MEAN CORPUS HGB CONC 34.7 g/dL (32.0-36.0); MEAN CORPUSCULAR HEMOGLOB 30.5 pg (26.0-34.0); MEAN CORPUSCULAR VOLUME 87.9 fL (80-100); MEAN PLATELET VOLUME 11.2 fL (9.2-13.0); RBC DISTRIBUTION WIDTH 14.1 % (12.0-16.0); RED CELL COUNT 4.13 10/6/uL (4.7-6.1); WHITE BLOOD CELLS 7.5 10/3/uL (4.5-10.5)
[2016-04-18 09:39] LABS: MANUAL DIFF YES %; PLATELET COUNT 276 10/3/uL (150-400)
[2016-04-18 09:59] LABS: BAND NEUTROPHILS 10 %; EOSINOPHILS 1 %; EOSINOPHILS ABSOLUTE (CALC) 0.08 10/3/uL (0.0-0.53); LYMPHOCYTES 16 %; MONOCYTES 2 %; MONOCYTES ABSOLUTE (CALC) 0.15 10/3/uL (0.21-1.20); NEUTROPHILS ABSOLUTE (CALC) 6.08 10/3/uL (2.02-8.40); PLATELET ESTIMATE ADQ (ADEQUATE); RBC MORPHOLOGY NORM (NORMAL); SEGMENTED NEUTROPHIL (0) 71 %; TOTAL NUCLEATED CELLS 100
[2016-04-18 10:01] LABS: CALCIUM, SERUM 8.2 MG/DL (8.5-10.4); CHLORIDE, SERUM 108 MMOL/L (96-112); CO2 (CARBON DIOXIDE) 24 MMOL/L (24-34); GFR AFRICAN AMERICAN 92 ML/MIN (>=60); GFR NON AFRICAN AMERICAN 79 ML/MIN (>=60); GLUCOSE, SERUM 204 MG/DL (60-99); POTASSIUM, SERUM 3.8 MMOL/L (3.5-5.3); SODIUM, SERUM 141 MMOL/L (135-148)
[2016-04-18 10:04] LABS: BUN (BLOOD UREA NITROGEN) 14 MG/DL (6-23); PHOSPHORUS, SERUM 1.6 MG/DL (2.5-4.5)
[2016-05-17] MEDS ORDERED: LANTUSCART SC (13:41)
[2016-05-17] MEDS ORDERED: ARICEPT5 PO (13:42)
[2016-05-17] MEDS ORDERED: NOVOPEN SC (13:42)
[2016-05-17] MEDS ORDERED: PLAVIX PO (13:43)
[2016-05-17] MEDS ORDERED: LIPITOR80 MG PO (13:43)
[2016-05-17] MEDS ORDERED: ASABAYER PO (13:45)
[2016-05-17] MEDS ORDERED: PROTONIX PO (13:45)
[2016-05-23] MEDS ORDERED: LANTUS SC ×2 (19:52→19:53)
[2016-05-23] MEDS ORDERED: NOVOLOG SC (19:53)
[2016-05-23] MEDS ORDERED: DIABETA5 PO (19:54)
[2016-05-23] MEDS ORDERED: ASA5GR PO (19:54)
[2016-05-23] MEDS ORDERED: CARDCD120 PO (19:54)
[2016-05-23] MEDS ORDERED: PLAVIX PO (19:54)
[2016-05-23] MEDS ORDERED: ARICEPT5 PO (19:54)
[2016-05-23] MEDS ORDERED: LIPITOR80 MG PO (19:55)
[2016-05-23] MEDS ORDERED: PRIN10 PO (19:55)
[2016-05-23] MEDS ORDERED: ADVIL PO (19:56)
[2016-05-23] MEDS ORDERED: MIRALAX POWDER1 PKT PO (19:56)
[2016-05-23] MEDS ORDERED: DESITIN (19:57)
== END 2016-04-20 18:19 | DRG 65 ==
LOC: ER 11:17 → MIC 13:22 → 1SO 04-17 15:34
PROVIDERS: Anesthesiology; Hospitalist; Internal Medicine Critical Care Medicine; Internal Medicine Pulmonary Disease; Urology
PROC: 0T9030Z Drainage of Right Kidney with Drainage Device, Percutaneous Approach (ICD-10-PCS; principal; 2016-04-15)
DX: I63.9 Cerebral infarction, unspecified (principal); G81.91 Hemiplegia, unspecified affecting right dominant side; Q60.0 Renal agenesis, unilateral; F05 Delirium due to known physiological condition; F03.90 Unspecified dementia, unspecified severity, without behavioral disturbance, psychotic disturbance, mood disturbance, and anxiety; E11.65 Type 2 diabetes mellitus with hyperglycemia; N13.30 Unspecified hydronephrosis; N39.0 Urinary tract infection, site not specified; C61 Malignant neoplasm of prostate; D49.59 Neoplasm of unspecified behavior of other genitourinary organ; R13.10 Dysphagia, unspecified; R29.708 NIHSS score 8; R47.1 Dysarthria and anarthria; E78.00 Pure hypercholesterolemia, unspecified; I44.0 Atrioventricular block, first degree; I44.7 Left bundle-branch block, unspecified; E11.9 Type 2 diabetes mellitus without complications; I10 Essential (primary) hypertension; Z79.4 Long term (current) use of insulin; Z79.899 Other long term (current) drug therapy; Z86.73 Personal history of transient ischemic attack (TIA), and cerebral infarction without residual deficits
CPT/HCPCS: 36415; 50432; 70450; 70496; 70498; 70551; 71010; 74176; 80048; 80053; 80061; 80076; 81001; 82550; 82553; 82962; 83036; 83690; 83735; 84100; 84153; 84270; 84403; 84439; 84443; 84484; 85025; 85610; 85730; 86850; 86900; 86901; 87077; 87086; 87186; 87641; 88112; 92610-GN; 93005; 95816; 96374; 97110-GP; 97116-GP; 97162-GP; 97166-GO; 97535-GO; 99285; A9270-GY; C1729; C1769; C1894; C8929; G8978-CL-GP; G8979-CK-GP; G8987-CL-GO; G8988-CK-GO; G8996-CI-GN; G8997-CI-GN; G8998-CI-GN; J0360; J0692; J1170; J1956; J2405; J2710; J2997; J3010; Q9957; Q9967

== ENCOUNTER 2016-05-23 21:02 | Inpatient (IN) | payer MEDICARE, OTHER ==
--- NOTE | ~2016-05-23 | HP ---
History And Physical [address] [facility] [place]. [address] NAME: DYAN TORRES : [birth year] STATUS : ADM IN [facility]#: [id number] AGE: 89 ADM/REG DATE : 05/23/16 MR#: [id number] REPORT SERV DATE: 05/23/16 DICTATED BY: MARVIN PISANO DATE: 05/23/16 REPORT STATUS : Draft TRANSCRIBED BY: MODGlenroy DATE: 05/23/16 DATE OF ADMISSION: 05/23/2016 POINT OF ENTRY: [facility] Emergency Department. PRIMARY UROLOGIST: Dr. Carrasco. CHIEF COMPLAINT: Hematuria. HISTORY OF PRESENT ILLNESS: Mr. Torres is an 89-year-old gentleman with history of recurrent locally advanced prostate cancer, status post recent nephrostomy tube placement who presents to the emergency department today with a one-day history of gross hematuria with associated blood clots. The patient was recently diagnosed with recurrence of locally advanced prostate cancer with CT imaging showing distal right ureteral mass causing some hydronephrosis. A Hawthorne catheter was placed for urinary retention. Shortly after this CT imaging, he was readmitted to the hospital with an acute stress fracture requiring IV-tPA administration. During that hospitalization, he was seen by Urology and orders were placed for placement of a right nephrostomy tube. This nephrostomy tube has since been replaced. He continues to have both the right nephrostomy tube as well as the Hawthorne catheter in place. Family reports that up until today both nephrostomy tube and folate have been draining urine. It is worth noting the patient has a congenital right solitary kidney as seen on CT imaging. The patient denies any recent fevers, night sweats, chills, chest pain, abdominal pain, nausea, vomiting, diarrhea, constipation, melena, or hematochezia. He notes the above- mentioned gross hematuria, which started today as well as some recent troubles with dysphagia with a sensation of food getting stuck in his chest. The family states he does cough frequently after swallowing. Daughter is also very concerned about some shortness of breath. COMPREHENSIVE REVIEW OF SYSTEMS: Otherwise negative unless listed in history of present illness. Initial evaluation in the emergency department notable for a three-way Hawthorne catheter placed and started on continuous bladder irrigation. Labs notable for a glucose of 356 and some mild transaminitis. Urinalysis is positive for pyuria. The patient was subsequently admitted to the Hospitalist Service for further evaluation and management. PREVIOUS MEDICAL HISTORY: 1. Recurrent locally advanced prostate cancer with previous treatment with brachytherapy greater than 10 years ago, now with distal right ureter obstruction, status post nephrostomy tube placement. 2. Congenital right solitary kidney. 3. History of recent MCA cerebrovascular accident, status post tPA administration. 4. Dementia. History And Physical [address] [address] NAME: DYAN TORRES : [birth year] STATUS : ADM IN [facility]#: [id number] AGE: 89 ADM/REG DATE : 05/23/16 MR#: [id number] REPORT SERV DATE: 05/23/16 DICTATED BY: MARVIN PISANO DATE: 05/23/16 REPORT STATUS : Draft TRANSCRIBED BY: ESTELLE DATE: 05/23/16 5. Insulin-dependent diabetes mellitus type 2. Hemoglobin A1c of 9.8. 6. Hypertension. 7. Hyperlipidemia. SURGICAL HISTORY: 1. Right nephrostomy tube placement and replacement. 2. Hernia repair. ALLERGIES: NO KNOWN DRUG ALLERGIES. HOME MEDICATIONS: 1. Aspirin 325 mg daily. 2. Atorvastatin 80 mg at bedtime. 3. Plavix 75 mg daily. 4. Cardizem CD 120 mg daily. 5. Donepezil 5 mg at bedtime. 6. DiaBeta 5 mg b.i.d. 7. Ibuprofen 400 mg b.i.d. p.r.n. 8. NovoLog 40 units before meals. 9. Lantus 15 units in the morning. 10.Lantus 10 units at night. 11.Lisinopril 10 mg daily. 12.MiraLAX 17 g daily p.r.n. 13.Zinc oxide application p.r.n. SOCIAL HISTORY: Denies any tobacco, alcohol, or illicits. FAMILY MEDICAL HISTORY: Mother with leukemia. Father of old age. Siblings with diabetes. LABS AND IMAGING: White count is 8.5, hemoglobin 12.4, hematocrit 36.2, and platelet count 351. INR 1.1. Sodium is 136, potassium 4.6, chloride 99, carbon dioxide 29, BUN 18, creatinine 1.09, glucose is 356, calcium is 8.6, protein is 7.3, albumin is 3.8, bilirubin is 0.5, ALT is 89, AST 46, alkaline phosphatase is 126. Urinalysis: Specific gravity is 1.013, cloudy with large leukocyte esterase with 18 red blood cells and greater than 182 white blood cells per high-powered field. This is taken from the nephrostomy bag. PHYSICAL EXAMINATION: VITAL SIGNS: Temperature is 97.4 degrees Fahrenheit, pulse is 95, respirations 16, and saturating 98% on room air. Blood pressure is 133/71. GENERAL: The patient is awake, alert, in no acute distress, resting comfortably in bed. He is a well-developed, well-nourished, elderly male. Daughter is at bedside. HEENT: Atraumatic and normocephalic. Moist mucous membranes. Pupils are equal, round, History And Physical [address] [address] NAME: DYAN TORRES : [birth year] STATUS : ADM IN [facility]#: [id number] AGE: 89 ADM/REG DATE : 05/23/16 MR#: [id number] REPORT SERV DATE: 05/23/16 DICTATED BY: MARVIN PISANO DATE: 05/23/16 REPORT STATUS : Draft TRANSCRIBED BY: ESTELLE DATE: 05/23/16 reactive to light and accommodation. Extraocular eye movements are intact. No scleral icterus. NECK: No jugular venous distention. No carotid bruits. CARDIAC: Regular rate and rhythm. No murmurs or gallops. Normal S1, S2. LUNGS: Clear to auscultation bilaterally. No wheezes, rhonchi, or crackles. ABDOMEN: Soft, nontender, nondistended with good bowel sounds. No rebound, guarding, or rigidity. : The patient currently has a three-way Hawthorne catheter in place with continuous bladder irrigation. It is now a clear red urine without any obvious clots. He also has a right- sided nephrostomy tube in place. There is currently draining clear yellow urine without any evidence of gross hematuria or blood clots. EXTREMITIES: Warm, perfused. No cyanosis, clubbing, or edema. SKIN: Warm and dry. PSYCH: Affect appropriate. NEURO: Alert and oriented x3. Cranial nerves 2 through 12 grossly intact. Speech is normal. Gait not assessed. ASSESSMENT: Mr. Torres is an 89-year-old gentleman who presents with one-day history of gross hematuria for his Hawthorne catheter. PROBLEM LIST: 1. Gross hematuria. 2. Possible urinary tract infection. 3. Insulin-dependent diabetes mellitus type 2 with hyperglycemia. 4. Dysphagia. 5. Transaminitis. 6. History of recurrent locally advanced prostate cancer. PLAN: 1. Gross hematuria. The patient currently has a three-way Hawthorne catheter in place as well as continuous bladder irrigation. We will consult Urology for assistance in the morning. We will hold the patient's aspirin and Plavix at least overnight to assist with hemostasis. 2. Possible urinary tract infection. The patient denies any symptoms; however, he does have a nephrostomy and Hawthorne catheter in place. Denies any recent fevers. His white count is normal. We will place the patient on empiric antibiotics overnight and follow up his urine culture. We will place him on Levaquin and cefepime to cover his recent urine cultures of Enterococcus faecalis, Citrobacter, as well as Pseudomonas with an intermediate resistance to Zosyn on the Citrobacter. 3. Insulin-dependent diabetes mellitus type 2 with hyperglycemia. Continue the patient's home nutritional as well as Lantus. Place on level 2 insulin sliding scale. 4. Dysphagia. Unclear if this is true dysphagia versus possible odynophagia secondary to possible esophageal stricture. We will consult Speech Therapy for initial evaluation. The patient may need GI evaluation later. In the meantime, we will make the patient nothing by mouth pending speech therapy evaluation. 5. Transaminitis. Unclear etiology as recent CT scan was unremarkable. We will check a right upper quadrant ultrasound as well as a viral hepatitis panel. History And Physical [address] [address] NAME: DYAN TORRES : [birth year] STATUS : ADM IN PAT#: [id number] AGE: 89 ADM/REG DATE : 05/23/16 MR#: [id number] REPORT SERV DATE: 05/23/16 DICTATED BY: MARVIN PISANO DATE: 05/23/16 REPORT STATUS : Draft TRANSCRIBED BY: MODGlenroy DATE: 05/23/16 6. Recurrent locally advanced prostate cancer per the patient's primary urologist. 7. DVT prophylaxis. RONI's and SCD's given active bleeding. CODE STATUS: The patient wished to be full code. JCB/MODL Marvin Pisano MD / [id number] CC: Kendell Marte
--- NOTE | ~2016-05-23 | DS ---
Discharge Summary [id number] [facility] [place]. [address] NAME: DYAN TORRES : [birth year] STATUS : DIS IN PAT#: [id number] AGE: 89 ADM/REG DATE : 05/23/16 MR#: [id number] REPORT SERV DATE: 06/01/16 DICTATED BY: JOHNSON PEREZ DATE: 05/31/16 REPORT STATUS : Draft TRANSCRIBED BY: MODL DATE: 05/31/16 ADMISSION DATE: 05/23/2016 DISCHARGE DATE: 05/31/2016 DISCHARGE DIAGNOSES: 1. Gross hematuria due to urinary tract infection and Plavix. 2. History of recurrent prostate cancer, a bladder biopsy is negative this admission. Status post CT-guided biopsy of the extrinsic right ureteral mass currently only showing normal urothelial and verbally reported by Dr. Muhammad. 3. Recent right mid cerebral artery cerebrovascular accident, status post tPA. No evidence of ongoing dysphagia or aspiration by repeat swallow evaluation. 4. Type 2 diabetes mellitus. 5. Hypertension. 6. Hyperlipidemia. 7. Dementia. 8. Transaminitis, currently stable. 9. 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 10.Urinary tract infection from Pseudomonas and Enterococcus. 11.Generalized debility. 12.Severe protein-calorie malnutrition with a pre-albumin of 8.7. 13.Failure to thrive. 14.History of right solitary congenital kidney, status post nephrostomy tube. IMAGING: Please refer to interim summary dictated by Dr. Wilmer Wallace on 05/29/2016. INVASIVE PROCEDURES: Please refer to interim summary dictated by Dr. Wallace on 05/29/2016. BRIEF HISTORY OF PRESENT ILLNESS: The patient is an 89-year-old male who presented with advanced prostate cancer, status post recent nephrostomy tube placement and gross hematuria associated with clots and clot retention, so he was admitted. For detailed history and physical exam, please see note dictated by Dr. Jorge Moya on 05/23/2016. HOSPITAL COURSE: After being admitted to the hospital, this patient was cared for by Dr. Wilmer Wallace. Please refer to interim summary dictated by Dr. Wilmer Wallace on 05/29/2016. I took over this patient's care on 05/30/2016. This patient was doing still poorly. He needed further treatment with IV antibiotics, these are arranged through outpatient IV infusion and in the home setting with home health care, a PICC line has been placed for that reason only. This patient continues to have a Hawthorne catheter. His hematuria has resolved. Three-way irrigation has been discontinued by Urology. His nephrostomy tube was dysfunctional, so his nephrostomy tube has been replaced by Interventional Radiology yesterday and it currently is functional with clear straw-colored urine. I had a discussion regarding the patient's care with Dr. Carrasco. He feels that at this time this patient's overall prognosis remains poor and hospice should be considered. The family has accepted that and the patient will be enrolled in hospice of [facility] Discharge Summary [address] [address] NAME: DYAN TORRES : [birth year] STATUS : DIS IN PAT#: [id number] AGE: 89 ADM/REG DATE : 05/23/16 MR#: [id number] REPORT SERV DATE: 06/01/16 DICTATED BY: JOHNSON PEREZ DATE: 05/31/16 REPORT STATUS : Draft TRANSCRIBED BY: ESTELLE DATE: 05/31/16 after he finishes his IV antibiotics in the home setting. A biopsy of the right ureteral mass was done, report of which is noted as above only verbally. The rest of the followup will be done by Dr. Carrasco in the office. At this time, this patient remains medically stable and is being discharged in stable condition with plans to enroll in hospice after completing his IV antibiotic therapy. DISPOSITION: Home. ACTIVITY: As tolerated. DIET: 1800-calorie Citizen [employer] [place] [employer] diet. MEDICATIONS: Lipitor 80 mg once at bedtime, amoxicillin 500 mg three times daily for six more days, cefepime 1 g IV q.6 hours through 06/06/2016, diltiazem CD 120 mg once daily, Aricept 5 mg once at bedtime, Lantus insulin 15 units subcutaneously every morning and 10 units at bedtime, NovoLog 4 units subcutaneously before every meal, lisinopril 10 mg once daily, aspirin 325 mg once every morning, glyburide 5 mg twice daily, MiraLAX one packet p.r.n. for constipation, and Desitin cream for rash on the buttocks. DISCHARGE FOLLOWUP: With Dr. Tahir Carrasco as scheduled or recommended by him and with nurse practitioner, Hannah Novak, as needed. More than 30 minutes spent planning this patient's discharge, reconciling medications, writing prescriptions, discussing hospital care, follow up with the patient and the family at the bedside and documenting this discharge. ALEX/ESTELLE Johnson Perez M.D. / [id number] CC: Kendell Luz III, M.D. Adrien K. Strickland, M.D. Teresa Regan, MD
--- NOTE | ~2016-05-23 | OP ---
Record Of Operation [facility] [address] [place]. [address] NAME: DYAN TORRES : [birth year] STATUS : ADM IN PAT#: [id number] AGE: 89 ADM/REG DATE : 05/23/16 MR#: [id number] REPORT SERV DATE: 05/25/16 DICTATED BY: TAHIR ANAND III DATE: 05/24/16 REPORT STATUS : Draft TRANSCRIBED BY: MODL DATE: 05/24/16 DATE OF PROCEDURE: 05/24/2016 PROCEDURE: Cystoscopy, right retrograde with anterior urethral prostate biopsy, clot evacuation. PREOPERATIVE DIAGNOSES: Clot retention, gross hematuria, and right ureteral obstruction. POSTOPERATIVE DIAGNOSES: Clot retention, gross hematuria, and right ureteral obstruction. ANESTHESIA: General. SURGEON: Tahir Anand M.D. DESCRIPTION OF PROCEDURE: Following induction of adequate general anesthesia, the patient was placed in the dorsal lithotomy position, prepped, and draped sterile fashion. The urethra was examined and was normal. Prostatic fossa was full of clot. (inaudible) was full of clot. Clot was evacuated with an Ellik. I then examined the bladder with the 30 and 70 degree lenses. The patient has a known mass obstructing ureter. It appeared to be in an extravesical position. The CT also showed what appeared to be a mass in the bladder on the same side. The exam showed heavy trabeculation, cellules etc. There was some catheter reaction on the posterior wall of the bladder. The orifice was visible and the right lateral wall was free of any obvious tumor. There was some oozing from the bladder mucosa in general and some oozing from the prostate. It was not profuse and a retrograde was done showing a very narrow ureter through the bladder wall and some extent extravesically with a sharp cut off and hydronephrosis above. The prostate was somewhat irregular at the bladder neck and I went ahead and took two small shavings of the tissue at the bladder neck. These areas were fulgurated and the two small shavings were sent for pathology. The bladder was then inspected. There was no clot remaining and a 24- [place] 3-way catheter was inserted into the bladder. IMPRESSION: 1. Gross hematuria with clot retention. 2. Urinary tract infection. 3. Right ureteral obstruction. It is not clear. The mass noted on a previous CT actually unusual presentation of prostate cancer or transitional cell cancer. On digital exam, there was no change to suggest extension from the base in the right side of the prostate. We will await the pathology. He will need additional antibiotics for several days. I will discuss with family whether to treat him with as if he had recurrent prostate cancer or proceed with percutaneous needle biopsy. OB/MODL Tahir Record Of Operation [address] [place] [place] [address] NAME: DYAN TORRES : [birth year] STATUS : ADM IN PAT#: [id number] AGE: 89 ADM/REG DATE : 05/23/16 MR#: [id number] REPORT SERV DATE: 05/25/16 DICTATED BY: TAHIR ANAND III DATE: 05/24/16 REPORT STATUS : Draft TRANSCRIBED BY: ESTELLE DATE: 05/24/16 Danilo RAINES M.D. / [id number] CC: YVONNE WISEMAN
--- NOTE | ~2016-05-23 | IDS ---
Interim Discharge Summary [facility] [address] [place]. [address] NAME: DYAN TORRES : [birth year] STATUS : ADM IN [facility]#: [id number] AGE: 89 ADM/REG DATE : 05/23/16 MR#: [id number] REPORT SERV DATE: 05/30/16 DICTATED BY: DATE: REPORT STATUS : Draft TRANSCRIBED BY: MODL DATE: 05/29/16 ADMISSION DATE: 05/23/2016 DISCHARGE DATE: The patient is admitted to the [facility] Hospitalist Service. CONSULTANTS: Have included Dr. Carrasco and Dr. Zuleta of Urology. CURRENT DIAGNOSES: 1. Gross hematuria-due to urinary tract infection and Plavix. 2. History of recurrent prostate cancer. Bladder biopsies negative this admission. Status post CT-guided biopsy of extrinsic right ureteral mass in Interventional Radiology today. 3. Recent right middle cerebral artery cerebrovascular accident, status post tPA in 03/2016. No evidence of ongoing dysphagia or aspiration by repeat swallow evaluation this admission. 4. Insulin-dependent diabetes mellitus type 2 - uncontrolled with hemoglobin A1c of 9.8. 5. Hypertension. 6. Hyperlipidemia. 7. Dementia. 8. Transaminitis - resolved. 9. Mild systolic congestive heart failure - no acute exacerbation this admission. Ejection fraction 45%, focal akinesis. 10.Urinary tract infection with fluoroquinolone resistant Pseudomonas and group D Enterococcus. 11.Generalized weakness. 12.Severe protein calorie malnutrition with pre-albumin of 8.7. 13.Left lower lobe atelectasis. 14.Irritability and altered mental status - possibly related to Remeron. Improved with discontinuation. 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 IMAGING AND DIAGNOSTICS: 1. Portable chest x-ray 05/24/2016 for shortness of breath shows low lung volumes with mild bibasilar atelectasis. Old healed right-sided rib fractures. 2. Abdominal ultrasound 05/24/2016 for transaminitis shows marked hydronephrosis of the right kidney no longer present. Today mild caliectasis. Status post left nephrectomy. 3. Portable chest x-ray 05/28/2016 for fever and lethargy shows increasing atelectasis in the left base. 4. Bedside speech therapy evaluation showed no evidence of aspiration on 05/25/2016. PERTINENT LABS: Creatinine values have ranged from 0.7 to 1.0 this admission. Total bilirubin normal. Alkaline phosphatase between 74 and 126. ALT initially 89, AST initially 46. Lipase negative. Pre-albumin 8.7. White blood cell count as high as 10.6, currently 8.0; hemoglobin values between 8.8 and 12.4; platelet count is normal. INR normal. Urinalysis on 05/23/2016 cloudy with large leukocyte esterase, 18 red cells, greater than Interim Discharge Summary [address] [place]. [address] NAME: DYAN TORRES : [birth year] STATUS : ADM IN PAT#: [id number] AGE: 89 ADM/REG DATE : 05/23/16 MR#: [id number] REPORT SERV DATE: 05/30/16 DICTATED BY: DATE: REPORT STATUS : Draft TRANSCRIBED BY: MODL DATE: 05/29/16 182 white cells with few clumps and few budding yeast. Blood cultures on 05/23/2016 were negative and on 05/28/2016 show pending. Urinary cultures 05/15/2016 with group D enterococcus and fluoroquinolone resistant Pseudomonas. Repeat culture 05/23/2016 growing fluoroquinolone resistant Pseudomonas. PROCEDURES: 1. Cystoscopy with right retrograde pyelogram with anterior urethral prostate biopsy and clot evacuation on 05/24/[address] Carras[address] 2[address]-guided biopsy of extrinsic right ureteral mass by Interventional Radiology on 05/29/2016. BRIEF HISTORY: For full details, please see the previously dictated history of present illness by Dr. Moya. This is an 89-year-old white male with history of recurrent locally advanced prostate cancer, status post recent nephrostomy tube placement, who presented to the emergency department with one day history of gross hematuria with associated blood clots and clot retention. The patient had been recently diagnosed with recurrence of locally advanced prostate cancer by urologist, Dr. Carrasco. Imaging at that time also showed distal right ureteral mass causing some hydronephrosis. The right nephrostomy tube was placed during March hospitalization for that reason. The patient was actually hospitalized at that time for an acute CVA requiring tPA. The patient had been recovering at [facility] after his CVA and had completed that recovery and had recently been discharged back to home with his daughter but was brought to the emergency department for evaluation because of the hematuria as well as some other concerns including dysphagia, poor p.o. intake, and some shortness of breath. HOSPITAL COURSE: The patient was admitted to the Hospitalist Service on . For the gross hematuria, Urology was consulted. Continuous bladder irrigation was ordered. Aspirin and Plavix were held. Urinalysis was suggestive of possible urinary tract infection, and he was placed on cefepime and Levaquin for prior susceptibility data. On 05/24/2016, patient was taken to the operating room by Dr. Carrasco and underwent a cystoscopy with right retrograde pyelogram and anterior urethral prostate biopsy and clot evacuation. The nature of the ongoing right ureteral obstruction was not clear. The mass noted on the prior CT was felt to be extrinsic, and not definitively suggestive of prostate cancer recurrence or a transitional cell cancer. Thus, plans were made for the patient undergo a CT-guided biopsy of the mass in Interventional Radiology, and this procedure occurred today. The patient's urine culture was positive for group D enterococcus and fluoroquinolone resistant Pseudomonas. Current antibiotic regimen includes cefepime, and ampicillin has been added. The patient will require 14 days of total antibiotics from 05/23/2016, thus will complete the course on 06/06/2016. There were no oral options available for treatment of the fluoroquinolone resistant Pseudomonas, and therefore, a PICC line will be placed in anticipation of need for outpatient IV antibiotics. The patient remains very weak during this hospitalization, with variable p.o. intake. Interim Discharge Summary [address] [address] NAME: DYAN TORRES : [birth year] STATUS : ADM IN [facility]#: [id number] AGE: 89 ADM/REG DATE : 05/23/16 MR#: [id number] REPORT SERV DATE: 05/30/16 DICTATED BY: DATE: REPORT STATUS : Draft TRANSCRIBED BY: MODL DATE: 05/29/16 Attempt was made to start him on Remeron, but this may have resulted in increased irritability and altered mental status. Medication was discontinued on 05/28/2016 with improvement in his mentation on 05/29/2016. However, symptoms could also be related to waxing and waning dementia. It is unclear at present. The patient does have moderate protein calorie malnutrition but seems to have a reasonable appetite and good oral intake here at the hospital. Disposition plan is currently unclear. The patient's family is amenable to speaking with [facility] as previously recommended by Dr. Carrasco and they have been consulted here. Because he remains weak, he will likely require some additional rehab with or without hospice at a senior living facility. He also requires ongoing IV antibiotics through 06/06/2016 as above. DISCHARGE DISPOSITION: The patient remains hospitalized currently to be followed by a colleague starting tomorrow. MARII/ESTELLE Wilmer Wallace M.D. / [id number] CC: Wilmer Wallace M.D. [place] Kishore Carrasco III, M.D.
[2016-05-23 19:32] LABS: BASOPHILS 0.2 %; BASOPHILS ABSOLUTE 0.02 10/3/uL (0.0-0.16); EOSINOPHILS 1.6 %; EOSINOPHILS ABSOLUTE 0.14 10/3/uL (0.0-0.53); HEMATOCRIT 36.2 % (40.0-51.0); HEMOGLOBIN 12.4 g/dL (13.6-17.8); IMMATURE GRANULOCYTES 0.6 %; IMMATURE GRANULOCYTES ABSOLUTE 0.05 10/3/uL (0.0-0.11); LYMPHOCYTES 17.6 %; MEAN CORPUS HGB CONC 34.3 g/dL (32.0-36.0); MEAN CORPUSCULAR HEMOGLOB 30.3 pg (26.0-34.0); MEAN CORPUSCULAR VOLUME 88.5 fL (80-100); MEAN PLATELET VOLUME 8.5 fL (9.2-13.0); MONOCYTES 5.1 %; MONOCYTES ABSOLUTE 0.43 10/3/uL (0.21-1.20); NEUTROPHILS 74.9 %; NEUTROPHILS ABSOLUTE 6.37 10/3/uL (2.02-8.40); PLATELET COUNT 351 10/3/uL (150-400); RBC DISTRIBUTION WIDTH 12.8 % (12.0-16.0); RED CELL COUNT 4.09 10/6/uL (4.7-6.1); WHITE BLOOD CELLS 8.5 10/3/uL (4.5-10.5)
[2016-05-23 19:33] LABS: MANUAL DIFF NO %
[2016-05-23 19:40] LABS: INTERNATIONAL NORMAL RATI 1.1 UNITS (-); PROTIME (NOT ORD) 14.4 SEC (12.0-14.5)
[2016-05-23 19:50] LABS: A/G RATIO 0.6 (0.7-1.9); ALBUMIN 2.8 G/DL (3.5-5.0); CALCIUM, SERUM 8.6 MG/DL (8.5-10.4); CHLORIDE, SERUM 99 MMOL/L (96-112); CREATININE 1.09 MG/DL (0.70-1.30); GFR AFRICAN AMERICAN 69 ML/MIN (>=60); GFR NON AFRICAN AMERICAN 60 ML/MIN (>=60); GLOBULIN 4.5 G/DL (2.5-4.1); SGOT(AST) 46 U/L (5-40); SGPT(ALT) 89 U/L (5-65); SODIUM, SERUM 136 MMOL/L (135-148); TOTAL BILIRUBIN 0.5 MG/DL (0-1.2); TOTAL PROTEIN 7.3 G/DL (6.0-8.5)
[2016-05-23 19:52] LABS: ALKALINE PHOSPHATASE 126 U/L (45-117); BUN (BLOOD UREA NITROGEN) 18 MG/DL (6-23); CO2 (CARBON DIOXIDE) 29 MMOL/L (24-34); GLUCOSE, SERUM 356 MG/DL (60-99); POTASSIUM, SERUM 4.6 MMOL/L (3.5-5.3)
[2016-05-23 19:54] LABS: ASCORBIC ACID (UR NOT ORDER) NEG (NEG); BILIRUBIN, URINE NEGATIVE (NEG); ER URINALYSIS TAT 0 Hrs 16 Mins; KETONE, URINE NEGATIVE (NEG); LEUKOCYTE ESTERASE(NOT OR LARGE (NEG); NITRITE (URINE) NEG (NEG); WBC (NOT ORDERED) (RFLEX) > 182 (0-5)
[~2016-05-23 21:02] MED LIST changes: +ADVIL PO; +ARICEPT5 PO; +ASA5GR PO; +ASABAYER PO; +CARDCD120 PO; +DESITIN; +LANTUS SC; +LANTUSCART SC; +LIPITOR80 MG PO; +MIRALAX POWDER1 PKT PO; +NOVOLOG SC; +NOVOPEN SC; +PLAVIX PO; +PROTONIX PO
[2016-05-24 06:35] LABS: BASOPHILS 0.1 %; BASOPHILS ABSOLUTE 0.01 10/3/uL (0.0-0.16); EOSINOPHILS 1.3 %; EOSINOPHILS ABSOLUTE 0.14 10/3/uL (0.0-0.53); HEMOGLOBIN 10.7 g/dL (13.6-17.8); IMMATURE GRANULOCYTES 0.3 %; IMMATURE GRANULOCYTES ABSOLUTE 0.03 10/3/uL (0.0-0.11); LYMPHOCYTES 11.4 %; MEAN CORPUS HGB CONC 34.2 g/dL (32.0-36.0); MEAN CORPUSCULAR HEMOGLOB 30.1 pg (26.0-34.0); MEAN CORPUSCULAR VOLUME 87.9 fL (80-100); MEAN PLATELET VOLUME 8.8 fL (9.2-13.0); MONOCYTES 5.4 %; MONOCYTES ABSOLUTE 0.57 10/3/uL (0.21-1.20); NEUTROPHILS 81.5 %; NEUTROPHILS ABSOLUTE 8.55 10/3/uL (2.02-8.40); PLATELET COUNT 340 10/3/uL (150-400); RBC DISTRIBUTION WIDTH 13.2 % (12.0-16.0); RED CELL COUNT 3.56 10/6/uL (4.7-6.1); WHITE BLOOD CELLS 10.5 10/3/uL (4.5-10.5)
[2016-05-24 06:38] LABS: HEMATOCRIT 31.3 % (40.0-51.0); MANUAL DIFF NO %
[2016-05-24 06:45] LABS: BUN (BLOOD UREA NITROGEN) 15 MG/DL (6-23); CALCIUM, SERUM 8.1 MG/DL (8.5-10.4); CHLORIDE, SERUM 104 MMOL/L (96-112); CO2 (CARBON DIOXIDE) 25 MMOL/L (24-34); CREATININE 0.92 MG/DL (0.70-1.30); GFR AFRICAN AMERICAN 85 ML/MIN (>=60); GFR NON AFRICAN AMERICAN 73 ML/MIN (>=60); POTASSIUM, SERUM 3.7 MMOL/L (3.5-5.3); SODIUM, SERUM 139 MMOL/L (135-148)
[2016-05-24 06:46] LABS: GLUCOSE, SERUM 152 MG/DL (60-99)
[2016-05-24 10:10] LABS: HEPATITIS B SURFACE ANTIGEN NON-REACTIVE (NON-REACT)
[2016-05-24 10:37] LABS: HEPATITIS C ANTIBODY NON-REACTIVE (NON-REACT)
[2016-05-24 10:38] LABS: HEPATITIS B CORE AB IGM NON-REACTIVE (NON-REAC)
[2016-05-24 10:39] LABS: HEP A ANTIBODY IGM NON-REACTIVE (NON-REACT)
[2016-05-25 05:04] LABS: BASOPHILS 0.2 %; BASOPHILS ABSOLUTE 0.02 10/3/uL (0.0-0.16); EOSINOPHILS ABSOLUTE 0.11 10/3/uL (0.0-0.53); IMMATURE GRANULOCYTES 0.5 %; IMMATURE GRANULOCYTES ABSOLUTE 0.05 10/3/uL (0.0-0.11); LYMPHOCYTES 13.3 %; LYMPHOCYTES ABSOLUTE 1.42 10/3/uL (0.67-4.30); MEAN CORPUS HGB CONC 33.3 g/dL (32.0-36.0); MEAN CORPUSCULAR HEMOGLOB 30.4 pg (26.0-34.0); MEAN PLATELET VOLUME 8.8 fL (9.2-13.0); MONOCYTES 5.6 %; NEUTROPHILS 79.4 %; NEUTROPHILS ABSOLUTE 8.44 10/3/uL (2.02-8.40); PLATELET COUNT 316 10/3/uL (150-400); RBC DISTRIBUTION WIDTH 13.4 % (12.0-16.0); RED CELL COUNT 3.62 10/6/uL (4.7-6.1); WHITE BLOOD CELLS 10.6 10/3/uL (4.5-10.5)
[2016-05-25 05:11] LABS: MANUAL DIFF NO %; MEAN CORPUSCULAR VOLUME 91.2 fL (80-100)
[2016-05-25 05:25] LABS: A/G RATIO 0.6 (0.7-1.9); ALBUMIN 2.4 G/DL (3.5-5.0); BUN (BLOOD UREA NITROGEN) 13 MG/DL (6-23); CALCIUM, SERUM 8.6 MG/DL (8.5-10.4); CHLORIDE, SERUM 105 MMOL/L (96-112); CO2 (CARBON DIOXIDE) 29 MMOL/L (24-34); CREATININE 1.02 MG/DL (0.70-1.30); GFR AFRICAN AMERICAN 75 ML/MIN (>=60); GFR NON AFRICAN AMERICAN 65 ML/MIN (>=60); GLOBULIN 4.3 G/DL (2.5-4.1); POTASSIUM, SERUM 4.1 MMOL/L (3.5-5.3); SGOT(AST) 19 U/L (5-40); SGPT(ALT) 54 U/L (5-65); SODIUM, SERUM 142 MMOL/L (135-148); TOTAL BILIRUBIN 0.4 MG/DL (0-1.2); TOTAL PROTEIN 6.7 G/DL (6.0-8.5)
[2016-05-25 05:27] LABS: ALKALINE PHOSPHATASE 108 U/L (45-117); GLUCOSE, SERUM 113 MG/DL (60-99)
[2016-05-26 04:49] LABS: BASOPHILS 0.1 %; BASOPHILS ABSOLUTE 0.01 10/3/uL (0.0-0.16); EOSINOPHILS 1.2 %; EOSINOPHILS ABSOLUTE 0.12 10/3/uL (0.0-0.53); HEMOGLOBIN 9.5 g/dL (13.6-17.8); IMMATURE GRANULOCYTES 0.3 %; IMMATURE GRANULOCYTES ABSOLUTE 0.03 10/3/uL (0.0-0.11); LYMPHOCYTES 15.2 %; LYMPHOCYTES ABSOLUTE 1.47 10/3/uL (0.67-4.30); MEAN CORPUS HGB CONC 33.7 g/dL (32.0-36.0); MEAN CORPUSCULAR HEMOGLOB 30.5 pg (26.0-34.0); MEAN CORPUSCULAR VOLUME 90.7 fL (80-100); MEAN PLATELET VOLUME 8.6 fL (9.2-13.0); MONOCYTES 8.1 %; MONOCYTES ABSOLUTE 0.78 10/3/uL (0.21-1.20); NEUTROPHILS 75.1 %; NEUTROPHILS ABSOLUTE 7.26 10/3/uL (2.02-8.40); PLATELET COUNT 307 10/3/uL (150-400); RBC DISTRIBUTION WIDTH 13.4 % (12.0-16.0); RED CELL COUNT 3.11 10/6/uL (4.7-6.1); WHITE BLOOD CELLS 9.7 10/3/uL (4.5-10.5)
[2016-05-26 04:59] LABS: HEMATOCRIT 28.2 % (40.0-51.0); MANUAL DIFF NO %
[2016-05-26 05:05] LABS: ALBUMIN 2.1 G/DL (3.5-5.0); BUN (BLOOD UREA NITROGEN) 12 MG/DL (6-23); CALCIUM, SERUM 8.4 MG/DL (8.5-10.4); CHLORIDE, SERUM 107 MMOL/L (96-112); CO2 (CARBON DIOXIDE) 27 MMOL/L (24-34); CREATININE 0.84 MG/DL (0.70-1.30); GFR AFRICAN AMERICAN 90 ML/MIN (>=60); GFR NON AFRICAN AMERICAN 78 ML/MIN (>=60); POTASSIUM, SERUM 3.8 MMOL/L (3.5-5.3); SODIUM, SERUM 143 MMOL/L (135-148)
[2016-05-26 05:07] LABS: GLUCOSE, SERUM 53 MG/DL (60-99); PHOSPHORUS, SERUM 2.3 MG/DL (2.5-4.5)
[2016-05-27 06:51] LABS: BASOPHILS 0.1 %; BASOPHILS ABSOLUTE 0.01 10/3/uL (0.0-0.16); EOSINOPHILS 3.1 %; EOSINOPHILS ABSOLUTE 0.23 10/3/uL (0.0-0.53); HEMATOCRIT 26.3 % (40.0-51.0); HEMOGLOBIN 8.8 g/dL (13.6-17.8); IMMATURE GRANULOCYTES 0.5 %; IMMATURE GRANULOCYTES ABSOLUTE 0.04 10/3/uL (0.0-0.11); LYMPHOCYTES 22.2 %; LYMPHOCYTES ABSOLUTE 1.67 10/3/uL (0.67-4.30); MEAN CORPUS HGB CONC 33.5 g/dL (32.0-36.0); MEAN CORPUSCULAR HEMOGLOB 30.1 pg (26.0-34.0); MEAN CORPUSCULAR VOLUME 90.1 fL (80-100); MEAN PLATELET VOLUME 8.5 fL (9.2-13.0); MONOCYTES 7.6 %; MONOCYTES ABSOLUTE 0.57 10/3/uL (0.21-1.20); NEUTROPHILS 66.5 %; NEUTROPHILS ABSOLUTE 5.01 10/3/uL (2.02-8.40); PLATELET COUNT 297 10/3/uL (150-400); RBC DISTRIBUTION WIDTH 13.3 % (12.0-16.0); RED CELL COUNT 2.92 10/6/uL (4.7-6.1); WHITE BLOOD CELLS 7.5 10/3/uL (4.5-10.5)
[2016-05-27 06:52] LABS: MANUAL DIFF NO %
[2016-05-27 07:06] LABS: CALCIUM, SERUM 8.1 MG/DL (8.5-10.4); CHLORIDE, SERUM 106 MMOL/L (96-112); CO2 (CARBON DIOXIDE) 29 MMOL/L (24-34); GFR AFRICAN AMERICAN 92 ML/MIN (>=60); GFR NON AFRICAN AMERICAN 79 ML/MIN (>=60); PHOSPHORUS, SERUM 2.2 MG/DL (2.5-4.5); POTASSIUM, SERUM 3.7 MMOL/L (3.5-5.3); SODIUM, SERUM 142 MMOL/L (135-148)
[2016-05-27 07:08] LABS: BUN (BLOOD UREA NITROGEN) 16 MG/DL (6-23); GLUCOSE, SERUM 69 MG/DL (60-99)
[2016-05-28 03:46] LABS: BASOPHILS 0.1 %; BASOPHILS ABSOLUTE 0.01 10/3/uL (0.0-0.16); EOSINOPHILS 1.8 %; EOSINOPHILS ABSOLUTE 0.18 10/3/uL (0.0-0.53); HEMOGLOBIN 10.2 g/dL (13.6-17.8); IMMATURE GRANULOCYTES 0.4 %; IMMATURE GRANULOCYTES ABSOLUTE 0.04 10/3/uL (0.0-0.11); LYMPHOCYTES 14.2 %; LYMPHOCYTES ABSOLUTE 1.39 10/3/uL (0.67-4.30); MEAN CORPUS HGB CONC 34.5 g/dL (32.0-36.0); MEAN CORPUSCULAR HEMOGLOB 30.6 pg (26.0-34.0); MEAN CORPUSCULAR VOLUME 88.9 fL (80-100); MEAN PLATELET VOLUME 8.5 fL (9.2-13.0); MONOCYTES 6.8 %; MONOCYTES ABSOLUTE 0.67 10/3/uL (0.21-1.20); NEUTROPHILS 76.7 %; NEUTROPHILS ABSOLUTE 7.53 10/3/uL (2.02-8.40); PLATELET COUNT 336 10/3/uL (150-400); RBC DISTRIBUTION WIDTH 13.1 % (12.0-16.0); RED CELL COUNT 3.33 10/6/uL (4.7-6.1); WHITE BLOOD CELLS 9.8 10/3/uL (4.5-10.5)
[2016-05-28 03:47] LABS: HEMATOCRIT 29.6 % (40.0-51.0); MANUAL DIFF NO %
[2016-05-28 04:04] LABS: BUN (BLOOD UREA NITROGEN) 14 MG/DL (6-23); CALCIUM, SERUM 8.7 MG/DL (8.5-10.4); CHLORIDE, SERUM 106 MMOL/L (96-112); CO2 (CARBON DIOXIDE) 28 MMOL/L (24-34); CREATININE 0.76 MG/DL (0.70-1.30); GFR AFRICAN AMERICAN 94 ML/MIN (>=60); GFR NON AFRICAN AMERICAN 81 ML/MIN (>=60); GLUCOSE, SERUM 168 MG/DL (60-99); PHOSPHORUS, SERUM 2.3 MG/DL (2.5-4.5); POTASSIUM, SERUM 4.1 MMOL/L (3.5-5.3); PREALBUMIN 8.7 MG/DL (17.0-43.0); SODIUM, SERUM 143 MMOL/L (135-148)
[2016-05-29 06:39] LABS: BASOPHILS 0.2 %; BASOPHILS ABSOLUTE 0.02 10/3/uL (0.0-0.16); EOSINOPHILS 3.1 %; EOSINOPHILS ABSOLUTE 0.25 10/3/uL (0.0-0.53); HEMATOCRIT 29.4 % (40.0-51.0); IMMATURE GRANULOCYTES 0.4 %; IMMATURE GRANULOCYTES ABSOLUTE 0.03 10/3/uL (0.0-0.11); LYMPHOCYTES ABSOLUTE 1.52 10/3/uL (0.67-4.30); MEAN CORPUSCULAR VOLUME 88.3 fL (80-100); MEAN PLATELET VOLUME 8.4 fL (9.2-13.0); MONOCYTES ABSOLUTE 0.64 10/3/uL (0.21-1.20); NEUTROPHILS 69.3 %; NEUTROPHILS ABSOLUTE 5.55 10/3/uL (2.02-8.40); PLATELET COUNT 308 10/3/uL (150-400); RBC DISTRIBUTION WIDTH 13.3 % (12.0-16.0); RED CELL COUNT 3.33 10/6/uL (4.7-6.1)
[2016-05-29 06:43] LABS: MANUAL DIFF NO %
[2016-05-29 06:46] LABS: BUN (BLOOD UREA NITROGEN) 14 MG/DL (6-23); CALCIUM, SERUM 8.7 MG/DL (8.5-10.4); CHLORIDE, SERUM 106 MMOL/L (96-112); CO2 (CARBON DIOXIDE) 30 MMOL/L (24-34); CREATININE 0.69 MG/DL (0.70-1.30); GFR AFRICAN AMERICAN 98 ML/MIN (>=60); GFR NON AFRICAN AMERICAN 84 ML/MIN (>=60); GLUCOSE, SERUM 97 MG/DL (60-99); POTASSIUM, SERUM 3.5 MMOL/L (3.5-5.3); SODIUM, SERUM 144 MMOL/L (135-148)
[2016-05-29 06:51] LABS: INTERNATIONAL NORMAL RATI 1.2 UNITS (-); PROTIME (NOT ORD) 14.7 SEC (12.0-14.5)
[2016-05-30 04:41] LABS: BASOPHILS 0.1 %; BASOPHILS ABSOLUTE 0.01 10/3/uL (0.0-0.16); EOSINOPHILS 1.1 %; EOSINOPHILS ABSOLUTE 0.11 10/3/uL (0.0-0.53); HEMATOCRIT 31.1 % (40.0-51.0); HEMOGLOBIN 10.5 g/dL (13.6-17.8); IMMATURE GRANULOCYTES 0.3 %; IMMATURE GRANULOCYTES ABSOLUTE 0.03 10/3/uL (0.0-0.11); LYMPHOCYTES 14.7 %; LYMPHOCYTES ABSOLUTE 1.41 10/3/uL (0.67-4.30); MEAN CORPUS HGB CONC 33.8 g/dL (32.0-36.0); MEAN CORPUSCULAR HEMOGLOB 29.6 pg (26.0-34.0); MEAN CORPUSCULAR VOLUME 87.6 fL (80-100); MEAN PLATELET VOLUME 8.3 fL (9.2-13.0); MONOCYTES 9.1 %; MONOCYTES ABSOLUTE 0.87 10/3/uL (0.21-1.20); NEUTROPHILS 74.7 %; NEUTROPHILS ABSOLUTE 7.15 10/3/uL (2.02-8.40); PLATELET COUNT 285 10/3/uL (150-400); RBC DISTRIBUTION WIDTH 13.2 % (12.0-16.0); RED CELL COUNT 3.55 10/6/uL (4.7-6.1); WHITE BLOOD CELLS 9.6 10/3/uL (4.5-10.5)
[2016-05-30 04:43] LABS: MANUAL DIFF NO %
[2016-05-30 04:57] LABS: CALCIUM, SERUM 7.8 MG/DL (8.5-10.4); CHLORIDE, SERUM 103 MMOL/L (96-112); CO2 (CARBON DIOXIDE) 30 MMOL/L (24-34); CREATININE 0.77 MG/DL (0.70-1.30); GFR AFRICAN AMERICAN 93 ML/MIN (>=60); GFR NON AFRICAN AMERICAN 80 ML/MIN (>=60); SODIUM, SERUM 141 MMOL/L (135-148)
[2016-05-30 04:58] LABS: BUN (BLOOD UREA NITROGEN) 21 MG/DL (6-23); GLUCOSE, SERUM 218 MG/DL (60-99)
[2016-05-31 06:30] LABS: BASOPHILS 0.1 %; BASOPHILS ABSOLUTE 0.01 10/3/uL (0.0-0.16); EOSINOPHILS 1.2 %; EOSINOPHILS ABSOLUTE 0.12 10/3/uL (0.0-0.53); HEMATOCRIT 28.2 % (40.0-51.0); HEMOGLOBIN 9.7 g/dL (13.6-17.8); IMMATURE GRANULOCYTES 0.3 %; IMMATURE GRANULOCYTES ABSOLUTE 0.03 10/3/uL (0.0-0.11); LYMPHOCYTES 17.4 %; LYMPHOCYTES ABSOLUTE 1.69 10/3/uL (0.67-4.30); MEAN CORPUS HGB CONC 34.4 g/dL (32.0-36.0); MEAN CORPUSCULAR HEMOGLOB 30.2 pg (26.0-34.0); MEAN CORPUSCULAR VOLUME 87.9 fL (80-100); MEAN PLATELET VOLUME 8.5 fL (9.2-13.0); MONOCYTES 8.7 %; MONOCYTES ABSOLUTE 0.85 10/3/uL (0.21-1.20); NEUTROPHILS 72.3 %; NEUTROPHILS ABSOLUTE 7.03 10/3/uL (2.02-8.40); PLATELET COUNT 303 10/3/uL (150-400); RBC DISTRIBUTION WIDTH 13.3 % (12.0-16.0); RED CELL COUNT 3.21 10/6/uL (4.7-6.1); WHITE BLOOD CELLS 9.7 10/3/uL (4.5-10.5)
[2016-05-31 06:31] LABS: MANUAL DIFF NO %
[2016-05-31 06:46] LABS: CALCIUM, SERUM 8.5 MG/DL (8.5-10.4); CHLORIDE, SERUM 106 MMOL/L (96-112); CO2 (CARBON DIOXIDE) 29 MMOL/L (24-34); CREATININE 0.75 MG/DL (0.70-1.30); GFR AFRICAN AMERICAN 94 ML/MIN (>=60); GFR NON AFRICAN AMERICAN 81 ML/MIN (>=60); POTASSIUM, SERUM 3.6 MMOL/L (3.5-5.3); SODIUM, SERUM 143 MMOL/L (135-148)
[2016-05-31 06:48] LABS: BUN (BLOOD UREA NITROGEN) 15 MG/DL (6-23); GLUCOSE, SERUM 136 MG/DL (60-99)
[2016-05-31] MEDS ORDERED: AMOXIL500C PO (11:40)
[2016-05-31] MEDS ORDERED: MAX1 IV (11:41)
== END 2016-05-31 17:08 | disposition home or self-care (01) | DRG 665 ==
LOC: ER 21:02 → 4SO 21:24
PROVIDERS: Emergency Medicine; Hospitalist; Internal Medicine; Urology
PROC: 0TC68ZZ Extirpation of Matter from Right Ureter, Via Natural or Artificial Opening Endoscopic (ICD-10-PCS; 2016-05-24)
PROC: 3E0K8GC Introduction of Other Therapeutic Substance into Genitourinary Tract, Via Natural or Artificial Opening Endoscopic (ICD-10-PCS; 2016-05-24)
PROC: 0TBD8ZX Excision of Urethra, Via Natural or Artificial Opening Endoscopic, Diagnostic (ICD-10-PCS; principal; 2016-05-24 11:15)
PROC: 0V508ZZ Destruction of Prostate, Via Natural or Artificial Opening Endoscopic (ICD-10-PCS; 2016-05-24 11:15)
DX: N39.0 Urinary tract infection, site not specified (principal); E43 Unspecified severe protein-calorie malnutrition; E11.65 Type 2 diabetes mellitus with hyperglycemia; I50.22 Chronic systolic (congestive) heart failure; R13.10 Dysphagia, unspecified; Q60.0 Renal agenesis, unilateral; J98.11 Atelectasis; N32.0 Bladder-neck obstruction; N13.30 Unspecified hydronephrosis; T45.525A Adverse effect of antithrombotic drugs, initial encounter; Y92.009 Unspecified place in unspecified non-institutional (private) residence as the place of occurrence of the external cause; N30.21 Other chronic cystitis with hematuria; C61 Malignant neoplasm of prostate; R31.0 Gross hematuria; E78.5 Hyperlipidemia, unspecified; B96.5 Pseudomonas (aeruginosa) (mallei) (pseudomallei) as the cause of diseases classified elsewhere; B95.2 Enterococcus as the cause of diseases classified elsewhere; Z16.23 Resistance to quinolones and fluoroquinolones; R74.0 Nonspecific elevation of levels of transaminase and lactic acid dehydrogenase [LDH]; F03.90 Unspecified dementia, unspecified severity, without behavioral disturbance, psychotic disturbance, mood disturbance, and anxiety; Z79.4 Long term (current) use of insulin; Z86.73 Personal history of transient ischemic attack (TIA), and cerebral infarction without residual deficits
CPT/HCPCS: 36569; 49180; 50435; 71010; 74420; 76700; 77012; 80048; 80053; 80069; 80074; 81001; 82962; 83690; 83735; 84100; 84134; 85025; 85610; 87040; 87077; 87086; 87186; 88305; 88307; 88333; 92610-GN; 96374; 97162-GP; 99152; 99153; 99285; A9270-GY; C1729; C1751; C1769; G8978-CK-GP; G8979-CK-GP; G8980-CJ-GP; G8996-CI-GN; G8997-CI-GN; G8998-CI-GN; J0692; J1956; J2250; J2370; J2405; J2543; J3010; Q9967